=== PATIENT | male | born 1965 | race Caucasian/White ===

== ENCOUNTER → 2019-04-22 | Day surgery (SDC) | payer OTHER ==
[~2019-04-22] MED LIST: ASPIR-LOW81 MG PO; FENTANYL CITRATE/PF 100MCG/2 ML INJ ONE; HYOSCYAMINE 0.125 MG TAB ONE; MIDAZOLAM HCL 2 MG/2 ML VIAL ONE; PROPOFOL IV EMULSION 10 MG/ML 50 ML VIAL ONE; ZOLOFT50 MG PO; ZYRTEC10 M3 PO
--- OUTSIDE RECORDS SUMMARY | 2019-04-22 11:21 | XMS REPORT ---
Author Author [facility] Address Unknown Phone Unavailable Care Team Providers Care Track Supervisor Name Role Phone Unavailable Unavailable Payers Payer Name Policy Type Policy Number Effective Date Expiration Date Problems This patient has no known problems. Allergies, Adverse Reactions, Alerts Allergy Name Allergy Type Status Severity Reaction(s) Onset Date Inactive Date Treating Clinician Comments meperidine HCl DA Active [place] 2010-11-23 00:00:00 Medications This patient has no known medications.
[2019-04-22 15:45] VITALS: BP 120/81
--- NOTE | 2019-04-22 17:31 | Operative Report ---
DATE OF PROCEDURE: 04/22/2019 SURGEON: Quoc Nolasco MD PROCEDURE: Colonoscopy with biopsies. INDICATIONS FOR COLONOSCOPY: Colorectal cancer screening. MEDICATIONS: The patient was done under MAC, please see anesthesiologist's note. PROCEDURE IN DETAIL: With the patient in left lateral decubitus position, the flexible fiberoptic Olympus colonoscope was inserted into the rectum with ease and advanced all the way to the distal ascending colon. The scope was then advanced any further, as prep was poor with a large amount of retained fecal material in the colon. The scope was then withdrawn slowly. Whatever was visualized in the mucosa overlying the sigmoid colon, some scattered ulcerations and diffuse friability were noted and biopsies were obtained. Whatever was visualized in the mucosa overlying the rectum grossly appeared to be within normal limits. The scope was then retroflexed into the distal rectum and small internal hemorrhoids were noted. None of which was actively bleeding. The scope was then straightened out. It was subsequently withdrawn. The patient tolerated the procedure well. IMPRESSION: 1. Poor prep. 2. Diverticulosis. 3. Segmental colitis, sigmoid colon, biopsied. 4. Internal hemorrhoids, none actively bleeding. PLAN: Follow up histology. The patient will need a repeat colonoscopy after a better prep. MD GURDEEP Robledo/MANUEL /[id number] cc: Gilberto Beltre DO
== END | disposition home or self-care (01) ==
LOC: OR 11:19
PROVIDERS: ATTEND Internal Medicine Gastroenterology
DX: K57.92 Diverticulitis of intestine, part unspecified, without perforation or abscess without bleeding (principal); K50.10 Crohn's disease of large intestine without complications; K64.8 Other hemorrhoids; K21.9 Gastro-esophageal reflux disease without esophagitis; Z88.6 Allergy status to analgesic agent; Z01.810 Encounter for preprocedural cardiovascular examination; Z79.82 Long term (current) use of aspirin; Z68.29 Body mass index [BMI] 29.0-29.9, adult; Z86.73 Personal history of transient ischemic attack (TIA), and cerebral infarction without residual deficits
CPT/HCPCS: 45380; 93005; J2250; J2704; J3010; 45378

== ENCOUNTER → 2019-12-07 | Outpatient (CLI) | payer OTHER ==
[~2019-12-07] MED LIST changes: -FENTANYL CITRATE/PF 100MCG/2 ML INJ ONE; -HYOSCYAMINE 0.125 MG TAB ONE; -MIDAZOLAM HCL 2 MG/2 ML VIAL ONE; -PROPOFOL IV EMULSION 10 MG/ML 50 ML VIAL ONE
--- NOTE | 2019-12-07 16:51 | Diagnostic Imaging Report ---
Small bowel follow-through Comparison: None Clinical History: Possible Crohn's disease Milk Inspector radiographs were obtained. After oral ingestion of barium, overhead photospot x-ray images acquired periodically until the contrast medium across the ileocecal valve. Spot compression views of the areas of interest were obtained additionally if needed. Fluoroscopy time: 2.2 minutes Radiation dose: 48.2 mGy. Report: Milk Inspector: 5 lumbar type vertebrae. An ovoid 14 mm density in the right upper quadrant. This could represent a gallbladder calculus. Tiny calcific densities are seen overlying the right renal outline. These could represent small renal calculi. Further evaluation is recommended. Nonobstructive bowel gas pattern. Minimal degenerative changes of the upper lumbar spine. There is quick passage of the orally administered barium into proximal jejunum. No gross filling defects or mucosal fold abnormality seen in the visualized bowel. The orally administered contrast medium crosses the ileocecal valve at 60 minutes film. There is no small bowel obstruction. The mucosal fold pattern of small bowel is unremarkable. There is no large gross intraluminal filling defect. There is no extrinsic mass effect on the small bowel. The terminal ileum in particular appears to be unremarkable. Impression: Normal small bowel follow through study. No convincing evidence of Crohn's disease and other significant small bowel abnormality on this exam. Signed by: Trevon Caro MD on 12/07/2019 4:47 PM
== END ==
LOC: DX 08:29
PROVIDERS: ATTEND Internal Medicine Gastroenterology
DX: K50.90 Crohn's disease, unspecified, without complications (principal); Z11.59 Encounter for screening for other viral diseases
CPT/HCPCS: 74250; 87635

== ENCOUNTER 2020-06-25 17:23 | Inpatient (IN) | payer OTHER ==
[~2020-06-25] VITALS: Ht 180.3 cm; Wt 90.8 kg
[2020-06-25] MEDS: SODIUM CHLORIDE 0.9% 1000ML 1,000 ML IV SCH
[2020-06-25] MEDS ORDERED: ONDANSETRON HCL INJ 2MG/ML 2ML 2 MG/ML VIAL IV STA (17:52)
[2020-06-25] MEDS ORDERED: SODIUM CHLORIDE 0.9% 1000ML 1,000 ML IV STA (17:54)
[2020-06-25] MEDS ORDERED: SODIUM CHLORIDE 0.9% 1000ML 1,000 ML ONE (18:53)
[2020-06-25] MEDS ORDERED: ONDANSETRON HCL INJ 2MG/ML 2ML 2 MG/ML VIAL ONE (18:53)
[2020-06-25] MEDS ORDERED: PIPER-TAZ 3.375 GM 50 ML IV ONE (20:00)
[2020-06-25] MEDS ORDERED: PIPER-TAZ 3.375 GM 50 ML ONE (20:04)
[2020-06-25] MEDS ORDERED: METRONIDAZOLE 500MG/NS 100ML 100 ML IV ONE (21:45)
[2020-06-25] MEDS ORDERED: MORPHINE SULFATE INJ 4 MG/ML INJ 1ML IV PRN (22:15)
[2020-06-25] MEDS ORDERED: ONDANSETRON HCL INJ 2MG/ML 2ML 2 MG/ML VIAL IV PRN (22:15)
[2020-06-25 23:30] VITALS: BP 106/70
[2020-06-26] MEDS ORDERED: DICYCLOMINE HCL10 MG PO (00:57)
[2020-06-26 04:00] VITALS: BP 105/66
[2020-06-26] MEDS: PIPER-TAZ 3.375 GM 50 ML IV SCH ×3 (05:08→20:55)
[2020-06-26] MEDS: METRONIDAZOLE 500MG/NS 100ML 100 ML IV SCH ×4 (06:00→16:45)
[2020-06-26] MEDS ORDERED: METRONIDAZOLE 500MG/NS 100ML 100 ML IV SCH (06:00)
[2020-06-26] MEDS: SODIUM CHLORIDE 0.9% 1000ML 1,000 ML IV SCH ×4 (06:15→20:55)
[2020-06-26 08:03] VITALS: BP 120/86
[2020-06-26 08:20] VITALS: BP 120/86
[2020-06-26 09:17] LABS: BASOPHILS # (AUTO) 0.1 (0.0-0.1); BASOPHILS % 0.7 % (0.0-1.0); EOSINOPHILS # (AUTO) 0.5 (0.0-0.4); EOSINOPHILS % 5.3 % (0.0-6.0); HEMATOCRIT 38.3 % (38.2-49.6); HEMOGLOBIN 13.2 g/dL (14.0-18.0); LYMPHOCYTES # (AUTO) 1.9 (1.0-3.2); LYMPHOCYTES % 19.8 % (18.0-39.1); MEAN CORPUSCULAR HEMOGLOBIN 28.8 pg (28-32); MEAN CORPUSCULAR HGB CONC 34.5 g/dL (31-35); MEAN CORPUSCULAR VOLUME 83.6 fL (81-99); MONOCYTES # (AUTO) 0.9 (0.2-0.8); MONOCYTES % 9.8 % (4.4-11.3); PLATELET COUNT 300 x10e3/uL (140-360); RED BLOOD COUNT 4.58 x10e6/uL (4.3-5.7); RED CELL DISTRIBUTION WIDTH 12.7 % (11.7-14.4)
[2020-06-26 09:47] LABS: ALANINE AMINOTRANSFERASE 13 IU/L (0-55); ALBUMIN 2.6 g/dL (3.5-5.0); ALBUMIN/GLOBULIN RATIO 0.9 (0.8-2.0); ALKALINE PHOSPHATASE 52 IU/L (40-150); ANION GAP 8.1 mmol/L (8-16); BLOOD UREA NITROGEN 20 mg/dL (7-26); BUN/CREATININE RATIO 24 (6-25); CALCIUM 7.7 mg/dL (8.4-10.2); CARBON DIOXIDE 26 mmol/L (22-29); CHLORIDE 105 mmol/L (98-107); CREATININE, SERUM 0.83 mg/dL (0.72-1.25); EST GLOMERULAR FILTRATION RATE > 60 ML/MIN (60-); GLUCOSE 170 mg/dL (74-118); POTASSIUM 4.1 mmol/L (3.5-5.1); SODIUM 135 mmol/L (136-145)
[2020-06-26] MEDS ORDERED: MORPHINE SULFATE 2 MG/ML SYR 1ML IV PRN (11:00)
[2020-06-26 12:53] VITALS: BP 114/79
[2020-06-26] MEDS: DICYCLOMINE HCL 10 MG CAP PO SCH ×2 (15:10→20:49)
[2020-06-26 17:13] VITALS: BP 98/69
[2020-06-26] MEDS ORDERED: IBUPROFEN 200 MG TAB PO PRN (17:15)
[2020-06-26] MEDS ORDERED: IBUPROFEN 400 MG TAB PO PRN (17:30)
[2020-06-26 20:00] VITALS: BP 103/71
[2020-06-27] VITALS (8 sets, daily range): BP systolic 91–106; BP diastolic 66–80
[2020-06-27] MEDS: METRONIDAZOLE 500MG/NS 100ML 100 ML IV SCH ×4 (00:32→15:39)
[2020-06-27] MEDS ORDERED: MESALAMINE 400 MG CAP PO STA (02:19)
[2020-06-27] MEDS: PIPER-TAZ 3.375 GM 50 ML IV SCH ×3 (06:03→22:18)
[2020-06-27] MEDS: MESALAMINE 400 MG CAP PO SCH ×3 (06:03→22:18)
[2020-06-27] MEDS: DICYCLOMINE HCL 20 MG TAB PO SCH ×3 (06:03→22:18)
[2020-06-27] MEDS: SODIUM CHLORIDE 0.9% 1000ML 1,000 ML IV SCH ×3 (06:10→22:18)
[2020-06-27 06:32] LABS: BASOPHILS # (AUTO) 0.1 (0.0-0.1); BASOPHILS % 0.8 % (0.0-1.0); EOSINOPHILS # (AUTO) 0.7 (0.0-0.4); EOSINOPHILS % 6.9 % (0.0-6.0); HEMATOCRIT 41.9 % (38.2-49.6); HEMOGLOBIN 14.1 g/dL (14.0-18.0); LYMPHOCYTES # (AUTO) 1.8 (1.0-3.2); LYMPHOCYTES % 18.1 % (18.0-39.1); MEAN CORPUSCULAR HEMOGLOBIN 28.7 pg (28-32); MEAN CORPUSCULAR HGB CONC 33.7 g/dL (31-35); MEAN CORPUSCULAR VOLUME 85.2 fL (81-99); NEUTROPHILS # (AUTO) 6.3 (2.1-6.9); NEUTROPHILS % 63.7 % (38.7-80.0); PLATELET COUNT 321 x10e3/uL (140-360); RED BLOOD COUNT 4.92 x10e6/uL (4.3-5.7); RED CELL DISTRIBUTION WIDTH 12.8 % (11.7-14.4)
[2020-06-27 06:55] LABS: ANION GAP 12.3 mmol/L (8-16); BLOOD UREA NITROGEN 11 mg/dL (7-26); BUN/CREATININE RATIO 13 (6-25); CALCIUM 8.1 mg/dL (8.4-10.2); CARBON DIOXIDE 24 mmol/L (22-29); CHLORIDE 107 mmol/L (98-107); CREATININE, SERUM 0.83 mg/dL (0.72-1.25); EST GLOMERULAR FILTRATION RATE > 60 ML/MIN (60-); GLUCOSE 89 mg/dL (74-118); POTASSIUM 4.3 mmol/L (3.5-5.1); SODIUM 139 mmol/L (136-145)
[2020-06-27 11:56] LABS: WBC,FECAL (FECAL LACTOFERRIN) POSITIVE (NEGATIVE)
[2020-06-27 12:53] LABS: C DIFFICILE TOXIN A&B AMP PROB NEGATIVE (NEGATIVE)
[2020-06-27] MEDS ORDERED: ACETAMINOPHEN 325 MG TAB PO PRN (15:15)
[2020-06-28] VITALS: BP 99/65
[2020-06-28 04:00] VITALS: BP_SYST 104
[2020-06-28] MEDS: PIPER-TAZ 3.375 GM 50 ML IV SCH (05:34)
[2020-06-28] MEDS: SODIUM CHLORIDE 0.9% 1000ML 1,000 ML IV SCH (05:34)
[2020-06-28] MEDS ORDERED: MESALAMINE 400 MG CAP PO SCH (06:00)
[2020-06-28] MEDS: METRONIDAZOLE 500MG/NS 100ML 100 ML IV SCH ×2 (06:06)
[2020-06-28 08:00] VITALS: BP 110/81
[2020-06-28 08:57] VITALS: BP 110/81
[2020-06-28] MEDS ORDERED: DICYCLOMINE HCL 20 MG TAB PO SCH (09:00)
[2020-06-28] MEDS ORDERED: MESALAMINE1000 MG RC (11:18)
[2020-06-28] MEDS ORDERED: BENTYL10 MG/1 ML IV (11:21)
[2020-06-28] MEDS ORDERED: MESALAMINE DR400 MG PO (11:21)
[2020-06-28] MEDS ORDERED: AUGMENTIN 875-1 EACH PO (11:22)
[2020-06-28] MEDS ORDERED: FLAGYL500 MG PO (11:23)
[2020-06-28] MEDS ORDERED: ONDANSETRON HCL 4 MG ORAL DISINTEGRATING TAB PO PRN (12:30)
[2020-06-28 12:31] VITALS: BP 115/84
== END 2020-06-28 12:25 | disposition home or self-care (01) | DRG 392 ==
LOC: FSED 17:53 → ERHOLD 22:07 → MED/SURG 23:30
DX: K57.92 Diverticulitis of intestine, part unspecified, without perforation or abscess without bleeding (principal); D30.01 Benign neoplasm of right kidney; Z20.828 Contact with and (suspected) exposure to other viral communicable diseases
CPT/HCPCS: 36415; 74176; 80048; 80053; 81003; 83630; 83993; 85025; 85651; 86140; 86256; 86671; 87045; 87177; 87493; 96361; 99284; J2270; J2405; J2543; J7030; U0002

== ENCOUNTER → 2020-09-04 | Day surgery (SDC) | payer BC, OTHER ==
[~2020-09-04] MED LIST changes: +AUGMENTIN 875-1 EACH PO; +BENTYL10 MG/1 ML IV; +CIPRO500 MG PO; +DICYCLOMINE HCL10 MG PO; +FENTANYL CITRATE/PF 100MCG/2 ML INJ ONE; +FLAGYL500 MG PO; +HYOSCYAMINE SULFATE 0.5 MG/ML INJ ONE; +LIDOCAINE HCL 2% LOCAL INJ 5 ML SDV VIAL INJ ONE; +MESALAMINE DR400 MG PO; +MESALAMINE1000 MG RC; +MIDAZOLAM HCL 2 MG/2 ML VIAL ONE; +PROPOFOL IV EMULSION 10 MG/ML 20 ML VIAL ONE
[2020-09-04 09:05] VITALS: BP 109/81
[2020-09-04 14:59] LABS: WBC,FECAL (FECAL LACTOFERRIN) POSITIVE (NEGATIVE)
[2020-09-04 17:17] LABS: C DIFFICILE TOXIN A&B AMP PROB NEGATIVE (NEGATIVE)
== END | disposition home or self-care (01) ==
LOC: OR 07:20
PROVIDERS: ATTEND Internal Medicine Gastroenterology
DX: K57.92 Diverticulitis of intestine, part unspecified, without perforation or abscess without bleeding (principal); K51.90 Ulcerative colitis, unspecified, without complications; K64.8 Other hemorrhoids; K62.89 Other specified diseases of anus and rectum; M19.90 Unspecified osteoarthritis, unspecified site; Z88.6 Allergy status to analgesic agent; Z01.810 Encounter for preprocedural cardiovascular examination; Z01.812 Encounter for preprocedural laboratory examination; Z20.822 Contact with and (suspected) exposure to COVID-19; Z86.73 Personal history of transient ischemic attack (TIA), and cerebral infarction without residual deficits
CPT/HCPCS: 45380; 83630; 83993; 87045; 87177; 87328; 87493; 93005; J1980; J2001; J2250; J2704; J3010; U0002; 45378